=== PATIENT | female | born 1980 | race African-American/Black ===

== ENCOUNTER 2016-10-04 23:48 | Emergency (ER) | payer MEDICAID, OTHER ==
[2016-10-05] MEDS ORDERED: DIPH/PERTUSS(ACELL)/TETANUS VAC/PF 0.5 ML SYR (>=10YO) IM ONE (02:18)
[2016-10-05] MEDS ORDERED: VALSARTAN 40 MG TABLET PO ONE (02:19)
--- NOTE | 2016-10-05 02:19 | ER Document Report ---
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 Patient states that she is not up-to-date on her tetanus, she does not remember when the last time she had it was. She states bleeding is controlled. She also admits to stopping her lisinopril last week because she saw images and YouTube videos of angioedema and "it scares me." She is complaining of a headache that has been off and on for the past week since she stopped the lisinopril and has made an appointment with her primary care provider for early next week. She denies any blurred vision, chest pain, shortness of breath. TRAVEL OUTSIDE OF THE [place] IN LAST 30 DAYS: No - Related Data Allergies/Adverse Reactions: No Known Allergies Allergy (Verified 07/03/16 18:44) Past Medical History - General Information source: Patient - Social History Smoking Status: Current Some Day Smoker Chew tobacco use (# tins/day): No Frequency of alcohol use: Occasional Drug Abuse: None Family History: Reviewed & Not Pertinent Patient has suicidal ideation: No Patient has homicidal ideation: No - Past Medical History Cardiac Medical History: Reports: Hx Hypertension Renal/ Medical History: Denies: Hx Peritoneal Dialysis Past Surgical History: Reports: Hx Section - Immunizations Hx Diphtheria, Pertussis, Tetanus Vaccination: - unknown Review of Systems - Review of Systems Constitutional: No symptoms reported EENT: No symptoms reported Cardiovascular: See HPI Respiratory: No symptoms reported Gastrointestinal: No symptoms reported Genitourinary: No symptoms reported Female Genitourinary: No symptoms reported Musculoskeletal: No symptoms reported Skin: See HPI Hematologic/Lymphatic: No symptoms reported Neurological/Psychological: See HPI Physical Exam - Vital signs Vitals: Temp Pulse Resp BP Pulse Ox 98.2 F 78 18 175/116 H 100 10/05/16 00:07 10/05/16 00:07 10/05/16 00:07 10/05/16 00:07 10/05/16 00:07 - Notes Notes: PHYSICAL EXAMINATION: GENERAL: Well-appearing and in no acute distress. HEAD: Atraumatic, normocephalic. EYES: Pupils equal round and reactive to light, extraocular movements intact, sclera anicteric, conjunctiva are normal. NECK: Normal range of motion, supple without lymphadenopathy LUNGS: CTAB and equal. No wheezes rales or rhonchi. HEART: Regular rate and rhythm without murmurs EXTREMITIES: Normal range of motion, no pitting edema. No cyanosis. NEUROLOGICAL: Cranial nerves grossly intact. Normal sensory/motor exams. PSYCH: Normal mood, normal affect. SKIN: Warm, Dry, normal turgor, 1cm laceration to volar surface of left 2nd digit distally, no bleeding, superficial Course - Re-evaluation Re-evalutation: 10/05/16 02:36 Pt given dose of blood pressure medication here as she was complaining of headache with a blood pressure 175/116. Patient did soak finger in Hibiclens with saline and laceration was prepared with Dermabond successfully. Patient has an appointment next week, I will provide her with a prescription for blood pressure medication - Vital Signs Vital signs: Temp Pulse Resp BP Pulse Ox 98.7 F 73 16 167/104 H 100 10/05/16 04:08 10/05/16 04:08 10/05/16 04:08 10/05/16 04:08 10/05/16 04:08 Procedures - Laceration/Wound Repair Left Volar 2nd digit Time completed: 01:00 Wound length (cm): 1 Wound's Depth, Shape: Superficial, Linear Laceration pre-procedure: Shur-Clens applied Irrigated w/ Saline (mLs): 50 Wound Repaired With: Dermabond Post-procedure NV exam normal: Yes Complications: No Discharge - Discharge Clinical Impression: Laceration, Need for tetanus booster HTN (hypertension) Qualifiers: Hypertension type: essential hypertension Qualified Code(s): I10 - Essential ( primary) hypertension Condition: Stable Disposition: HOME, SELF-CARE Instructions: Tetanus Immunization Given ([facility]), Non-Sutured Laceration ([facility]) Additional Instructions: Return immediately for any new or worsening symptoms. Follow up with primary care provider, call tomorrow to make followup appointment. Prescriptions: Cephalexin Monohydrate [Keflex 500 mg Capsule] 500 mg PO BID 5 Days Valsartan 40 mg PO DAILY #7 tablet Forms: Return to Work Referrals: DEANA YUSUF MD [Primary Care Provider] - Follow up as needed
[2016-10-05] MEDS ORDERED: VALSARTAN 40 MG TABLET ONE (03:20)
[2016-10-05 04:11] VITALS: BP 167/104
== END 2016-10-05 04:08 | disposition home or self-care (01) ==
LOC: ER 23:48
DX: S61.211A Laceration without foreign body of left index finger without damage to nail, initial encounter (principal); W26.0XXA Contact with knife, initial encounter; Y93.89 Activity, other specified; I10 Essential (primary) hypertension; Z91.14 Patient's other noncompliance with medication regimen; R51 Headache; Z23 Encounter for immunization; F17.200 Nicotine dependence, unspecified, uncomplicated
CPT/HCPCS: 90471; 90715; 99282

== ENCOUNTER → 2017-01-31 | Outpatient (CLI) | payer MEDICAID ==
[2017-02-01 06:46] LABS: CHLAM PCR NOT DETECTED (NOT DETECT)
== END ==
LOC: LAB 11:51
PROVIDERS: ATTEND Nurse Practitioner Acute Care
DX: N89.8 Other specified noninflammatory disorders of vagina (principal)
CPT/HCPCS: 87210; 87491; 87591

== ENCOUNTER → 2017-05-02 | Outpatient (CLI) | payer MEDICAID ==
[2017-05-02 13:02] LABS: CHLAM PCR NOT DETECTED (NOT DETECT)
== END ==
LOC: LAB 13:26
PROVIDERS: ATTEND Nurse Practitioner Acute Care
DX: N89.8 Other specified noninflammatory disorders of vagina (principal)
CPT/HCPCS: 87210; 87491; 87591

== ENCOUNTER 2017-05-12 02:52 | Emergency (ER) | payer MEDICAID ==
--- NOTE | 2017-05-12 03:21 | ER Document Report ---
ED General - General Chief Complaint: Difficulty Swallowing Stated Complaint: SHORTNESS OF BREATH Time Seen by Provider: 05/12/17 03:07 TRAVEL OUTSIDE OF THE [place] IN LAST 30 DAYS: No - HPI Notes: 37-year-old female with history of hypertension presents with chest discomfort and some sensation of a pill being stuck in the esophagus. She has been on Flagyl twice daily now for approximately a week and has 2 doses left. Each time she swallows that she feels like it is getting hung up. Feels like it is notably like this in her upper left chest which causes chest pressure and discomfort. With this some mild associated shortness of breath. There is no sharp pain. No hoarseness, speech difficulty. Denies cough or fever. She does have a history of hypertension and is supposed to be on lisinopril but is not taking it because it does not help her hypertension. She denies radiation of symptoms otherwise. Symptoms are mild to moderate. Denies headache focal weakness numbness or tingling. - Related Data Allergies/Adverse Reactions: No Known Allergies Allergy (Verified 07/03/16 18:44) Past Medical History - Social History Smoking Status: Current Some Day Smoker Frequency of alcohol use: Rare Drug Abuse: None Family History: Reviewed & Not Pertinent, CAD Patient has suicidal ideation: No Patient has homicidal ideation: No - Past Medical History Cardiac Medical History: Reports: Hx Hypertension Endocrine Medical History: Denies: Hx Diabetes Mellitus Type 1 Renal/ Medical History: Denies: Hx Peritoneal Dialysis Past Surgical History: Reports: Hx Section - Immunizations Hx Diphtheria, Pertussis, Tetanus Vaccination: - unknown Review of Systems - Review of Systems -: Yes All other systems reviewed and negative Physical Exam - Vital signs Vitals: Temp Pulse Resp BP Pulse Ox 98.1 F 89 18 164/113 H 100 05/12/17 02:58 05/12/17 02:58 05/12/17 02:58 05/12/17 02:58 05/12/17 02:58 Interpretation: Hypertensive - Notes Notes: Physical Exam: GENERAL: VS as per nursing doc. patient notably very hypertensive. Well- appearing, well-nourished and in no acute distress. HEAD: Atraumatic, normocephalic. EYES: Pupils equal round and reactive to light, extraocular movements intact, sclera anicteric, no conjunctival injection or discharge. ENT: Nares patent, oropharynx clear without exudates. Moist mucous membranes. No foreign body is noted. Trachea is midline, there is no neck swelling. NECK: Normal range of motion, supple without lymphadenopathy. No JVD. No Carotid Bruits. LUNGS: Breath sounds clear to auscultation bilaterally and equal. No wheezes rales or rhonchi. HEART: Normal S1S2. Regular rate and rhythm without murmurs. Equal peripheral pulses. ABDOMEN: Soft, non-tender EXTREMITIES: Normal range of motion. No calf tenderness. Negative Homans. No edema. NEUROLOGICAL: Cranial nerves grossly intact. Normal speech without hoarseness or stridor. Normal sensory and motor exams. No gross cerebellar abnormalities. PSYCH: Normal mood, normal affect. SKIN: Warm, dry, no cyanosis, no splinter hemorrhages. Cap refill < 2 sec. Course - Re-evaluation Re-evalutation: 05/12/17 05:27 I discussed with the patient findings. She has some mild hypokalemia she will supplement with improved diet. Her sensation seems to have resolved though she has the problem with the dysphasia with pills. I recommended GI follow-up her symptoms as she has had recurrence of this not just with pills but as well with some food in the past. With the chest pressure and her elevated blood pressure , I will consider this symptomatic and place her on Norvasc as the lisinopril had not worked in the past. She has used Norvasc when she has been in the hospital before and it seems to have helped. She understands she will need to establish a primary care physician for further blood pressure management, follow -up as well. She understands warning signs to watch for. She denies - Vital Signs Vital signs: Temp Pulse Resp BP Pulse Ox 98.1 F 89 27 H 155/105 H 100 05/12/17 02:58 05/12/17 02:58 05/12/17 05:08 05/12/17 05:08 05/12/17 05:08 - Laboratory Result Diagrams: 05/12/17 03:52 05/12/17 03:52 Laboratory results interpreted by me: 05/12/17 05/12/17 03:52 03:52 Hgb 11.2 L Hct 34.2 L MCH 26.8 L RDW 15.5 H Seg Neutrophils % 41.1 L Monocytes % 14.9 H Potassium 3.2 L - EKG Interpretation by Me EKG shows normal: Sinus rhythm - Rate 83, normal sinus rhythm, no clear ischemia. Borderline LVH. Nonspecific ST-T wave abnormalities. No prior EKG for comparison. Discharge - Discharge Clinical Impression: Dysphagia, Uncontrolled hypertension, Hypokalemia, Chest pain Condition: Good Disposition: HOME, SELF-CARE Additional Instructions: Return for worsening or concern. Make sure you call to arrange follow-up as well as establish a primary care physician. Prescriptions: Amlodipine Besylate [Norvasc 5 mg Tablet] 5 mg PO DAILY #30 tablet Forms: Smoking Cessation Education Referrals: [facility] [Provider Group] - Follow up in 1 week ANNETTE VERONICA MD [ACTIVE STAFF] - Follow up in 1 week
[2017-05-12 04:07] LABS: ABSOLUTE BASOPHILS # (AUTO) 0.1 10^3/uL (0.0-0.2); ABSOLUTE EOSINOPHILS # (AUTO) 0.1 10^3/uL (0.0-0.6); ABSOLUTE LYMPHOCYTES (AUTO) 2.1 10^3/uL (0.5-4.7); ABSOLUTE MONOCYTES (AUTO) 0.8 10^3/uL (0.1-1.4); ABSOLUTE NEUT (AUTO) 2.1 10^3/uL (1.7-8.2); BASOPHILS % (AUTO) 1.3 % (0-2); EOSINOPHILS % (AUTO) 1.3 % (0-6); HEMATOCRIT 34.2 % (36.0-47.0); HEMOGLOBIN 11.2 g/dL (12.0-15.5); HGB HCT DIFFERENCE -0.6; LYMPHOCYTES % (AUTO) 41.4 % (13-45); MEAN CORPUSCULAR HEMOGLOBIN 26.8 pg (27.0-33.4); MEAN CORPUSCULAR HGB CONC 32.7 g/dL (32.0-36.0); MEAN CORPUSCULAR VOLUME 82 fl (80-97); MONOCYTES % (AUTO) 14.9 % (3-13); RED BLOOD COUNT 4.18 10^6/uL (3.72-5.28); RED CELL DISTRIBUTION WIDTH 15.5 % (11.5-14.0); SEGMENTED NEUTROPHILS % (AUTO) 41.1 % (42-78); WHITE BLOOD COUNT 5.1 10^3/uL (4.0-10.5)
[2017-05-12 04:24] LABS: ANION GAP 11 (5-19); BLOOD UREA NITROGEN 10 mg/dL (7-20); CALCIUM 9.7 mg/dL (8.4-10.2); CARBON DIOXIDE 29 mmol/L (22-30); CHLORIDE 102 mmol/L (98-107); GLUCOSE 102 mg/dL (75-110); POTASSIUM 3.2 mmol/L (3.6-5.0); SODIUM 142.2 mmol/L (137-145)
[2017-05-12] MEDS ORDERED: AMLODIPINE BESYLATE 5 MG TABLET PO ONE (05:27)
--- NOTE | 2017-05-12 05:27 | RADIOLOGY REPORT (SQ) ---
EXAM DESCRIPTION: CHEST PA/LAT COMPLETED DATE/TIME: 05/12/2017 5:20 am REASON FOR STUDY: CP COMPARISON: None. EXAM PARAMETERS: NUMBER OF VIEWS: two views TECHNIQUE: Digital Frontal and Lateral radiographic views of the chest acquired. RADIATION DOSE: NA LIMITATIONS: none FINDINGS: LUNGS AND PLEURA: No opacities, masses or pneumothorax. No pleural effusion. MEDIASTINUM AND HILAR STRUCTURES: No masses or contour abnormalities. HEART AND VASCULAR STRUCTURES: Heart normal size. No evidence for failure. BONES: No acute findings. HARDWARE: None in the chest. OTHER: No other significant finding. IMPRESSION: NO SIGNIFICANT RADIOGRAPHIC FINDING IN THE CHEST. TECHNICAL DOCUMENTATION: JOB ID: [id number] [employer]- All Rights Reserved
[2017-05-12 05:56] VITALS: BP 152/107
--- NOTE | 2017-05-12 21:04 | EKG REPORT ---
SEVERITY:- NORMAL ECG - SINUS RHYTHM : Confirmed by: Issa Alvarado 12-May-2017 21:03:58
== END 2017-05-12 05:54 | disposition home or self-care (01) ==
LOC: ER 02:52
DX: R13.10 Dysphagia, unspecified (principal); I10 Essential (primary) hypertension; E87.6 Hypokalemia; R07.9 Chest pain, unspecified; R06.02 Shortness of breath; Z79.899 Other long term (current) drug therapy; F17.200 Nicotine dependence, unspecified, uncomplicated
CPT/HCPCS: 93005; 99285; 36415; 85025; 80048; 84484; 71020; 93010; J3490

== ENCOUNTER 2017-12-31 08:02 | Day surgery (SDC) | payer MEDICAID ==
[2017-12-31 10:25] VITALS: BP 144/103
--- NOTE | 2017-12-31 13:28 | Operative Report ---
Operative Report DATE OF SURGERY: 12/31/17 Operative Report: The risks, benefits and alternatives of the procedure including risks of bleeding, perforation requiring surgery are explained to the patient in detail and informed consent is obtained. The patient is brought back to the endoscopy suite and placed in a left, lateral decubital position. Timeout was called. Propofol medications administered. A rectal examination is done which did not reveal any masses, tears or fissures. An Olympus videoscope was inserted into the patient's rectum. The scope was then carefully advanced all the way to the cecum. The cecum is identified by the usual anatomical landmarks including the ileocecal valve as well as the appendiceal office. Photodocumentation is obtained. The scope was then sequentially pulled back via the various segments of the colon including the ascending colon, hepatic flexure, transverse colon, splenic flexure, descending colon and finally into the rectosigmoid portions of the colon. Retroflexion maneuvers performed. The risks benefits and alternatives of the procedure explained to the patient in detail and informed consent is obtained.A GIF Olympus video scope was inserted into the patient's mouth and hypopharynx, the esophagus is identified intubated and insufflated,,the scope was then advanced through the esophagus stomach and duodenum, retroflexion maneuver is done, the esophagus stomach and first and second portions of the duodenum examined PREOPERATIVE DIAGNOSIS: History of colon polyps. Epigastric pain rule out peptic ulcer disease POSTOPERATIVE DIAGNOSIS: Colon polyp, sessile in the sigmoid colon Status post biopsy. Gastritis status post biopsy rule out Helicobacter pylori OPERATION: Colonoscopy with biopsy. EGD with biopsy SURGEON: ANNETTE VERONICA ANESTHESIA: LMAC TISSUE REMOVED OR ALTERED: As noted above. COMPLICATIONS: None. ESTIMATED BLOOD LOSS: None. INTRAOPERATIVE FINDINGS: As noted above. PROCEDURE: Patient tolerated procedure well. Medial postprocedure complications are noted. Patient discharged in good condition. Discharge date 12/31/2017. Discharge diet: Regular. Discharge activity: Regular. 2-3 week follow-up to discuss findings. Patient is instructed to call the office or proceed to the emergency room should there be any further problems or questions. We will went pathology.
== END 2017-12-31 10:25 | disposition home or self-care (01) ==
LOC: END 08:02
PROVIDERS: ATTEND Internal Medicine Gastroenterology
PROC: 0DB68ZX Excision of Stomach, Via Natural or Artificial Opening Endoscopic, Diagnostic (ICD-10-PCS; 2017-12-31)
PROC: 0DBF8ZX Excision of Right Large Intestine, Via Natural or Artificial Opening Endoscopic, Diagnostic (ICD-10-PCS; principal; 2017-12-31 10:30)
PROC: 0DBN8ZX Excision of Sigmoid Colon, Via Natural or Artificial Opening Endoscopic, Diagnostic (ICD-10-PCS; 2017-12-31 10:30)
DX: D12.5 Benign neoplasm of sigmoid colon (principal); K29.50 Unspecified chronic gastritis without bleeding; K52.9 Noninfective gastroenteritis and colitis, unspecified; I10 Essential (primary) hypertension; F17.210 Nicotine dependence, cigarettes, uncomplicated; Z79.899 Other long term (current) drug therapy; Z86.010 Personal history of colon polyps
CPT/HCPCS: 43239; 45380; 813; 88305; 88342

== ENCOUNTER 2018-03-13 13:18 | Emergency (ER) | payer MEDICAID ==
[2018-03-13 13:55] VITALS: BP 170/105
--- NOTE | 2018-03-13 14:51 | ER Document Report ---
HPI - HPI Patient complains to provider of: Concerned about bedbugs Onset: Last week Onset/Duration: Persistent Pain Level: Denies Context: Patient complains of skin pruritus for the past week. Patient states that she works with a fellow employee who states that they had bed bugs and she is concerned that now she has them. Patient states that she is concerned that they may be underneath her skin. Associated Symptoms: Other - Skin rash with pruritus Exacerbated by: Denies Relieved by: Denies Similar symptoms previously: No Recently seen / treated by doctor: No - ROS ROS below otherwise negative: Yes Systems Reviewed and Negative: Yes All other systems reviewed and negative - CONSTITUTIONAL Constitutional: DENIES: Fever - EENT EENT: DENIES: Sore Throat - NEURO Neurology: DENIES: Headache - RESPIRATORY Respiratory: DENIES: Coughing - GASTROINTESTINAL Gastrointestinal: DENIES: Nausea, Patient vomiting - DERM Skin Color: Normal Skin Problems: Rash Past Medical History - General Information source: Patient - Social History Smoking Status: Current Every Day Smoker Smoking Education Provided: Yes Frequency of alcohol use: None Drug Abuse: None 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 Family History: Reviewed & Not Pertinent, CAD - Past Medical History Cardiac Medical History: Reports: Hx Hypertension Denies: Hx Coronary Artery Disease, Hx Heart Attack Pulmonary Medical History: Denies: Hx Asthma, Hx Bronchitis, Hx COPD, Hx Pneumonia Neurological Medical History: Denies: Hx Cerebrovascular Accident, Hx Seizures Endocrine Medical History: Denies: Hx Diabetes Mellitus Type 1 Renal/ Medical History: Denies: Hx Peritoneal Dialysis Musculoskeltal Medical History: Denies Hx Arthritis Psychiatric Medical History: Reports: Hx Anxiety Surgical Hx: Negative Past Surgical History: Reports: Hx Section - Immunizations Hx Diphtheria, Pertussis, Tetanus Vaccination: Yes Vertical Provider Document - CONSTITUTIONAL Agree With Documented VS: Yes Exam Limitations: No Limitations General Appearance: WD/WN, No Apparent Distress - INFECTION CONTROL TRAVEL OUTSIDE OF THE [place] IN LAST 30 DAYS: No - HEENT HEENT: Atraumatic, Normal ENT Exam, Normocephalic - NECK Neck: Normal Inspection, Supple. negative: Lymphadenopathy-Left, Lymphadenopathy-Right - RESPIRATORY Respiratory: Breath Sounds Normal, No Respiratory Distress - CARDIOVASCULAR Cardiovascular: Regular Rate, Regular Rhythm - BACK Back: Normal Inspection - MUSCULOSKELETAL/EXTREMETIES Musculoskeletal/Extremeties: JN CASTRO - NEURO Level of Consciousness: Awake, Alert, Appropriate Motor/Sensory: No Motor Deficit - DERM Integumentary: Warm, Dry, Rash - Very few scattered papular mildly erythematous lesions to extremities Course - Re-evaluation Re-evalutation: 03/13/18 14:49 Patient very concerned about possibility of bedbugs given that a fellow employee reports having bedbugs. Patient is concerned she has bugs underneath her skin. Explained to patient that bedbugs do not live underneath the surface of the skin. - Vital Signs Vital signs: Temp Pulse Resp BP Pulse Ox 99.0 F 71 18 170/105 H 99 03/13/18 13:54 03/13/18 13:54 03/13/18 13:54 03/13/18 13:54 03/13/18 13:54 Discharge - Discharge Clinical Impression: Insect bite Qualifiers: Encounter type: initial encounter Qualified Code(s): W57.XXXA - Bitten or stung by nonvenomous insect and other nonvenomous arthropods, initial encounter Condition: Stable Disposition: HOME, SELF-CARE Instructions: Insect Bites ([facility]), Topical Steroid Cream or Ointment ([facility]) Additional Instructions: Return immediately for any new or worsening symptoms Followup with your primary care provider, call tomorrow to make a followup appointment Prescriptions: Hydroxyzine HCl [Atarax 25 mg Tablet] 1 - 2 tab PO QID #20 tablet Triamcinolone Acetonide [Aristocort 0.1% Cream] 1 applic TP TID #60 gm Forms: Smoking Cessation Education Referrals: YESSI HERNÁNDEZ PA-C [NO LOCAL MD] - Follow up tomorrow
== END 2018-03-13 14:58 | disposition home or self-care (01) ==
LOC: ER 13:18
DX: R21 Rash and other nonspecific skin eruption (principal); L29.9 Pruritus, unspecified; W57.XXXA Bitten or stung by nonvenomous insect and other nonvenomous arthropods, initial encounter; F17.200 Nicotine dependence, unspecified, uncomplicated; I10 Essential (primary) hypertension
CPT/HCPCS: 99281

== ENCOUNTER 2018-05-05 18:21 | Emergency (ER) | payer MEDICAID ==
[2018-05-05] MEDS ORDERED: PROCHLORPERAZINE EDISYLATE INJ 10 MG/2 ML VIAL IV ONE (18:57)
--- NOTE | 2018-05-05 18:58 | ER Document Report ---
ED General - General Chief Complaint: Headache Stated Complaint: HEADACHE Time Seen by Provider: 05/05/18 18:57 Notes: Patient is a 38 year old female without chronic medical problems who presents with 3 days of sinus pressure, frontal sinus pressure, and 24 hours of a global headache. She describes the headache as an aching, throbbing, constant global headache. Worsened by lights, sounds, movement. Nothing improves the pain. She states this feels very similar to headaches that she has had in the past but she is uncertain of what has triggered this headache. She denies any head trauma. She denies any focal weakness, numbness, fever, constitutional symptoms, or confusion. She has not seen her general doctor regarding today's concerns. TRAVEL OUTSIDE OF THE [place] IN LAST 30 DAYS: No - Related Data Allergies/Adverse Reactions: No Known Allergies Allergy (Verified 03/13/18 13:19) Past Medical History - General Information source: Patient - Social History Smoking Status: Never Smoker Frequency of alcohol use: None Drug Abuse: None Lives with: Spouse/Significant other Family History: Reviewed & Not Pertinent, CAD - Past Medical History Cardiac Medical History: Reports: Hx Hypertension Denies: Hx Coronary Artery Disease, Hx Heart Attack Pulmonary Medical History: Denies: Hx Asthma, Hx Bronchitis, Hx COPD, Hx Pneumonia Neurological Medical History: Denies: Hx Cerebrovascular Accident, Hx Seizures Endocrine Medical History: Denies: Hx Diabetes Mellitus Type 1 Renal/ Medical History: Denies: Hx Peritoneal Dialysis Musculoskeletal Medical History: Denies Hx Arthritis Psychiatric Medical History: Reports: Hx Anxiety Past Surgical History: Reports: Hx Section - Immunizations Hx Diphtheria, Pertussis, Tetanus Vaccination: Yes Review of Systems - Review of Systems Notes: Constitutional: Negative for fever. HENT: Positive for sinus congestion and pressure Eyes: Negative for visual changes. Cardiovascular: Negative for chest pain. Respiratory: Negative for shortness of breath. Gastrointestinal: Negative for abdominal pain, vomiting or diarrhea. Genitourinary: Negative for dysuria. Musculoskeletal: Negative for back pain. Skin: Negative for rash. Neurological: Positive for headache 10 point ROS negative except as marked above and in HPI. Physical Exam - Vital signs Vitals: Temp Pulse Resp BP Pulse Ox 99.2 F 81 16 178/112 H 99 05/05/18 18:24 05/05/18 18:24 05/05/18 18:24 05/05/18 18:24 05/05/18 18:24 Interpretation: Hypertensive - Patient self discontinued medications approximately 2 months ago Notes: PHYSICAL EXAMINATION: GENERAL: Well-appearing, well-nourished and in no acute distress. HEAD: Atraumatic, normocephalic. EYES: Pupils equal round and reactive to light, extraocular movements intact, sclera anicteric, conjunctiva are normal. ENT: Nasal congestion, oropharynx clear without exudates. Moist mucous membranes. NECK: Normal range of motion, supple without lymphadenopathy LUNGS: Breath sounds clear to auscultation bilaterally and equal. No wheezes rales or rhonchi. HEART: Regular rate and rhythm without murmurs ABDOMEN: Soft, nontender, normoactive bowel sounds. No guarding, no rebound. No masses appreciated. EXTREMITIES: Normal range of motion, no pitting or edema. No cyanosis. NEUROLOGICAL: Face symmetric. Tongue protrudes midline. Extraocular motions intact. Pupils are 2 mm and equally reactive. Normal speech, normal gait. 5 out of 5 strength in both the distal and proximal upper and lower extremities bilaterally. Sensation is grossly intact throughout. Finger to nose testing normal. Pronator drift normal. PSYCH: Normal mood, normal affect. SKIN: Warm, Dry, normal turgor, no rashes or lesions noted. Course - Re-evaluation Re-evalutation: 05/05/18 18:58 Presentation of a headache that appears to be most consistent with tension versus migrainous type headache. Headache was not maximal in onset, patient has no focal neurologic deficits, no nuchal rigidity, vital signs within normal limits, no papilledema, and patient is overall well in appearance. Based on clinical history and examination I do not suspect an acute subarachnoid hemorrhage, dural venous sinus thrombosis, acute meningitis, or intercranial mass. Given my low clinical suspicion for any acute life-threatening etiology, I do not feel advanced neuro imaging or laboratory testing is indicated at this time. After receiving a migraine cocktail patient had significant improvement of her headache. The patient does also report symptoms consistent with allergic rhinitis and has been started on fluticasone as well as cetirizine. At this time will discharge with return precautions and follow-up recommendations. Verbal discharge instructions given a the bedside and opportunity for questions given. Medication warnings reviewed. Patient is in agreement with this plan and has verbalized understanding of return precautions and the need for primary care follow-up in the next 24-72 hours. - Vital Signs Vital signs: Temp Pulse Resp BP Pulse Ox 98.7 F 92 17 172/114 H 100 05/05/18 20:51 05/05/18 22:09 05/05/18 22:09 05/05/18 22:09 05/05/18 20:51 Discharge - Discharge Clinical Impression: Essential hypertension Migraine headache Qualifiers: Migraine type: unspecified Status migrainosus presence: with status migrainosus Intractability: not intractable Qualified Code(s): G43.901 - Migraine, unspecified, not intractable, with status migrainosus Allergic rhinitis Qualifiers: Allergic rhinitis trigger: unspecified Allergic rhinitis seasonality: unspecified Qualified Code(s): J30.9 - Allergic rhinitis, unspecified Condition: Good Disposition: HOME, SELF-CARE Additional Instructions: You were seen today for a migraine headache. Please follow-up with your primary care doctor regarding today's ED visit. Return to emergency department immediately if you develop a headache that gets to its maximum severity within 20 minutes of onset, you pass out, you develop weakness, numbness, changes in your vision, become unable to keep any fluids down for more than 12 hours, or develop a fever greater than 100.4 degrees Fahrenheit. If you develop a similar migraine headache in the future I recommend that you immediately take 600 mg of ibuprofen and 50 mg of Benadryl and go to sleep as quickly as possible. This can often prevent your migraine headache from becoming severe. For what appears to be allergies you should begin taking the fluticasone but has been given to you here today 2 sprays in each nostril daily as well as cetirizine 10 mg daily which can be purchased directly over the counter. Please be sure to continue taking her blood pressure medications as her blood pressure was noted to be elevated today.
[2018-05-05] MEDS ORDERED: DEXAMETHASONE SOD PHOS INJ 10 MG/1 ML VIAL IV ONE (19:07)
[2018-05-05] MEDS ORDERED: CETIRIZINE 10 MG TABLET PO ONE (19:07)
[2018-05-05] MEDS ORDERED: FLUTICASONE NASAL SPRAY 50 MCG/SPRY 120 SPRAY/16 GM NASL ONE (19:07)
[2018-05-05] MEDS ORDERED: FLUTICASONE NASAL SPRAY 50 MCG/SPRY 120 SPRAY/16 GM ONE (20:47)
[2018-05-05] MEDS ORDERED: KETOROLAC TROMETHAMINE INJ/PF 30 MG/1 ML SDV IV ONE (20:48)
[2018-05-05] MEDS ORDERED: HALOPERIDOL LACTATE INJ 5 MG/1 ML VIAL IV ONE (20:48)
[2018-05-05 22:10] VITALS: BP 172/114
== END 2018-05-05 22:31 | disposition home or self-care (01) ==
LOC: ER 18:21
DX: I10 Essential (primary) hypertension (principal); G43.901 Migraine, unspecified, not intractable, with status migrainosus; J30.9 Allergic rhinitis, unspecified
CPT/HCPCS: 99284; 96374; 96375; J3490 ×2; J1630; J1885; J0780; J1100

== ENCOUNTER 2018-06-12 00:33 | Emergency (ER) | payer MEDICAID ==
--- NOTE | 2018-06-12 03:41 | ER Document Report ---
HPI - HPI Pain Level: 3 Notes: Patient is a 38-year-old female with a history of hypertension who presents to the ED complaining of bilateral lower extremity swelling to her ankles and her feet over the last 3-4 days patient states that she has not been on her fluid pill in 4-5 days. Patient states that she was placed on it for hypertension. Patient states that last time she had any swelling in her lower externally was when she was . She otherwise has no pain or discomfort associated. She is eating and drinking without any difficulties. She is urinating normally and having normal bowel movements. She does not have any dyspnea on exertion. Denies any drug allergies. She has not noticed any redness or warmth. Denies any headache, fever, URI, sore throat, chest pain, palpitations, syncope, cough , shortness of breath, wheeze, dyspnea, abdominal pain, nausea/vomiting/diarrhea , urinary retention, dysuria, hematuria, loss of control of bowel or bladder, numbness/tingling, saddle anesthesia, muscle paralysis/weakness, or rash. Denies any prolonged immobilization, distance travel, recent surgery/trauma, personal cancer history, hormone use, smoking, or previous DVT/PE. - ROS Systems Reviewed and Negative: Yes All other systems reviewed and negative Past Medical History - Social History Smoking Status: Never Smoker Family History: Reviewed & Not Pertinent, CAD - Past Medical History Cardiac Medical History: Reports: Hx Hypertension Denies: Hx Coronary Artery Disease, Hx Heart Attack Pulmonary Medical History: Denies: Hx Asthma, Hx Bronchitis, Hx COPD, Hx Pneumonia Neurological Medical History: Denies: Hx Cerebrovascular Accident, Hx Seizures Endocrine Medical History: Denies: Hx Diabetes Mellitus Type 1 Renal/ Medical History: Denies: Hx Peritoneal Dialysis Musculoskeletal Medical History: Denies Hx Arthritis Psychiatric Medical History: Reports: Hx Anxiety Past Surgical History: Reports: Hx Section - Immunizations Hx Diphtheria, Pertussis, Tetanus Vaccination: Yes Vertical Provider Document - CONSTITUTIONAL Agree With Documented VS: Yes Notes: PHYSICAL EXAMINATION: GENERAL: Well-appearing, well-nourished and in no acute distress. HEAD: Atraumatic, normocephalic. EYES: Pupils equal round and reactive to light, extraocular movements intact, sclera anicteric, conjunctiva are normal. ENT: Nares patent and without discharge. oropharynx clear without exudates. No tonsilar hypertrophy or erythema. Moist mucous membranes. NECK: Normal range of motion, supple without lymphadenopathy LUNGS: Breath sounds clear to auscultation bilaterally and equal. No wheezes rales or rhonchi. HEART: Regular rate and rhythm without murmurs, rubs, gallops. ABDOMEN: Soft, nontender, nondistended abdomen. No guarding, no rebound. No masses appreciated. Normal bowel sounds present. No CVA tenderness bilaterally. Musculoskeletal: FROM to passive/active. Strength 5+/5. Shandra neg. No asymmetry to LE's. Extremities: Trace pitting edema to the b/l LE's at the ankle/feet. Peripheral pulses 2+. Capillary refill less than 3 seconds. NEUROLOGICAL: Normal speech, normal gait. PSYCH: Normal mood, normal affect. SKIN: Warm, Dry, normal turgor, no rashes or lesions noted. - INFECTION CONTROL TRAVEL OUTSIDE OF THE [place] IN LAST 30 DAYS: No Course - Re-evaluation Re-evalutation: 06/12/18 03:[address] Fairchild who is in agreement with dispo/plan: Patient is an afebrile, well-hydrated, 38-year-old female who presents to the ED with bilateral lower extremity pitting edema to her ankles and feet bilaterally. There is no asymmetry and Homans sign is negative. There is no sign of infection. Vitals are otherwise acceptable without any significant tachycardia, tachypnea, or hypoxia. PE is otherwise unremarkable for any neurovascular compromise, obvious tendon/ligament rupture, obvious fracture/ dislocation, septic joint. No further labs or imaging warranted at this time based on H&P. Patient declined wanting to be placed on any fluid pills at this time and states that she will check in with her PCM tomorrow to get another refill. Conservative measures otherwise for symptoms with elevation and compression stockings. Return to the ED with any other worsening/concerning symptoms otherwise as reviewed in discharge. Patient is in agreement. - Vital Signs Vital signs: Temp Pulse Resp BP Pulse Ox 98.6 F 74 18 139/91 H 100 06/12/18 00:45 06/12/18 00:45 06/12/18 00:45 06/12/18 00:45 06/12/18 00:45 Discharge - Discharge Clinical Impression: Bilateral lower extremity edema Condition: Stable Disposition: HOME, SELF-CARE Additional Instructions: Compression, Elevation Tylenol/ibuprofen as needed Light stretches daily Strength exercises as able F/u with your PCP in 1-2 days for a recheck and med refill Consider consult(s) with Orthopedics/physical therapy for ongoing/worsening symptoms Return to the ED with any worsening symptoms and/or development of fever, headache, chest pain, palpitations, syncope, shortness of breath, trouble breathing, abdominal pain, n/v/d, muscle weakness/paralysis, numbness/tingling, swelling, redness, or other worsening symptoms that are concerning to you. Forms: Elevated Blood Pressure [facility] [[facility] - 06/12/18
[2018-06-12 04:01] VITALS: BP 148/101
== END 2018-06-12 04:01 | disposition home or self-care (01) ==
LOC: ER 00:33
DX: R60.9 Edema, unspecified (principal); I10 Essential (primary) hypertension
CPT/HCPCS: 99283

== ENCOUNTER 2020-01-03 20:02 | Emergency (ER) | payer MEDICAID ==
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
[2020-01-03 21:06] LABS: ABSOLUTE BASOPHILS # (AUTO) 0.1 10^3/uL (0.0-0.2); ABSOLUTE LYMPHOCYTES (AUTO) 3.1 10^3/uL (0.5-4.7); ABSOLUTE MONOCYTES (AUTO) 0.7 10^3/uL (0.1-1.4); ABSOLUTE NEUT (AUTO) 3.3 10^3/uL (1.7-8.2); EOSINOPHILS % (AUTO) 0.3 % (0-6); HEMATOCRIT 29.1 % (36.0-47.0); HEMOGLOBIN 9.1 g/dL (12.0-15.5); MEAN CORPUSCULAR HEMOGLOBIN 21.4 pg (27.0-33.4); MEAN CORPUSCULAR HGB CONC 31.2 g/dL (32.0-36.0); MEAN CORPUSCULAR VOLUME 69 fl (80-97); MONOCYTES % (AUTO) 9.9 % (3-13); PLATELET COUNT 405 10^3/uL (150-450); RED BLOOD COUNT 4.25 10^6/uL (3.72-5.28); RED CELL DISTRIBUTION WIDTH 18.7 % (11.5-14.0); SEGMENTED NEUTROPHILS % (AUTO) 45.8 % (42-78); TOTAL CELLS COUNTED % (AUTO) 100 %; WHITE BLOOD COUNT 7.2 10^3/uL (4.0-10.5)
[2020-01-03 21:24] LABS: ALBUMIN 4.5 g/dL (3.5-5.0); ALKALINE PHOSPHATASE 52 U/L (38-126); ANION GAP 5 (5-19); ASPARTATE AMINO TRANSFERASE 27 U/L (14-36); BILIRUBIN,TOTAL 0.6 mg/dL (0.2-1.3); BLOOD UREA NITROGEN 11 mg/dL (7-20); CARBON DIOXIDE 32 mmol/L (22-30); CHLORIDE 101 mmol/L (98-107); GLUCOSE 100 mg/dL (75-110); POTASSIUM 3.5 mmol/L (3.6-5.0); TOTAL PROTEIN 8.2 g/dL (6.3-8.2)
--- NOTE | 2020-01-03 21:50 | RADIOLOGY REPORT (SQ) ---
EXAM DESCRIPTION: Noncontrast CT of the head CLINICAL HISTORY: 39 years Female HTN [facility] TECHNIQUE: Noncontrast CT head. All CT scans at this facility use dose modulation, iterative reconstruction, and/or weight based dosing when appropriate to reduce radiation dose to as low as reasonably achievable. COMPARISON: None. FINDINGS: Pope matter, white matter, ventricles, and cisterns are within normal limits. No acute hemorrhage or mass effect. Visualized portions of paranasal sinuses and mastoids are clear. Visualized portions of the calvarium are within normal limits. IMPRESSION: 1. No acute intracranial findings. If there is clinical concern for acute stroke, MRI brain should be considered as a more sensitive evaluation.
[2020-01-03] MEDS ORDERED: ONDANSETRON HCL INJ/PF 4 MG/2 ML SDV IV ONE (21:58)
[2020-01-03] MEDS ORDERED: NORMAL SALINE 1000 ML 1,000 ML IV ONE (21:58)
[2020-01-03] MEDS ORDERED: CLONIDINE HCL 0.1 MG TABLET PO ONE (21:59)
--- NOTE | 2020-01-03 22:55 | ER Document Report ---
Entered by TYLER YUSUF SCRIBE 01/03/20 [id number] Acting as scribe for:LAITH AGUAYO IV, MD ED Blood Pressure Problem - General Chief Complaint: Blood Pressure Problem Stated Complaint: HIGH BLOOD PRESSURE Time Seen by Provider: 01/03/20 21:42 Primary Care Provider: KEY PORTER MD [Primary Care Provider] - 01/05/20 Mode of Arrival: Ambulatory Information source: Patient Notes: This 39 year old female patient with a history of hypertension presents to the ED today with complaints of an elevated blood pressure reading that occurred today. Patient states that she has had multiple stressful events yesterday that she believes caused her hypertension. She reports that she stopped taking Telmisartan due to side effects. She states that she checks her blood pressure everyday and that her readings normally trend in the 120s systolic and 90s diastolic. She notes nausea/vomiting and a frontal headache that started yesterday. Patient was seen at her PCP yesterday and was started on iron pills. She states that she took x2 iron pills yesterday on an empty stomach, which may have contributed to her GI symptoms. She also reports anxiety concerning the Covid-19 pandemic. She denies dizziness, chest pain, shortness of breath, or v isual disturbances. Denies marijuana or cocaine use. TRAVEL OUTSIDE OF THE [place] IN LAST 30 DAYS: No - Related Data Allergies/Adverse Reactions: No Known Allergies Allergy (Verified 03/13/18 13:19) Past Medical History - Social History Smoking Status: Never Smoker Cigarette use (# per day): No Chew tobacco use (# tins/day): No Smoking Education Provided: No Drug Abuse: None Family History: Reviewed & Not Pertinent, CAD Patient has suicidal ideation: No Patient has homicidal ideation: No - Past Medical History Cardiac Medical History: Reports: Hx Hypertension Psychiatric Medical History: Reports: Hx Anxiety Past Surgical History: Reports: Hx Section - Immunizations Hx Diphtheria, Pertussis, Tetanus Vaccination: Yes Review of Systems - Review of Systems Constitutional: See HPI, Other - Hypertension EENT: See HPI. denies: Blurred vision Cardiovascular: See HPI. denies: Chest pain, Dizziness Respiratory: See HPI. denies: Short of breath Gastrointestinal: See HPI, Nausea, Vomiting Genitourinary: No symptoms reported Female Genitourinary: No symptoms reported Musculoskeletal: No symptoms reported Skin: No symptoms reported Hematologic/Lymphatic: No symptoms reported Neurological/Psychological: See HPI, Anxiety, Headaches -: Yes All other systems reviewed and negative Physical Exam - Vital signs Vitals: Temp Pulse Resp BP Pulse Ox 99.2 F 76 16 171/110 H 100 01/03/20 20:05 01/03/20 20:05 01/03/20 20:05 01/03/20 20:05 01/03/20 20:05 Interpretation: Hypertensive - General General appearance: Alert, Anxious In distress: None - HEENT Head: Normocephalic, Atraumatic Eyes: Normal Pupils: PERRL - Respiratory Respiratory status: No respiratory distress Chest status: Nontender Breath sounds: Normal Chest palpation: Normal - Cardiovascular Rhythm: Regular Heart sounds: Normal auscultation Murmur: No - Abdominal Inspection: Normal Distension: No distension Bowel sounds: Normal Tenderness: Nontender Organomegaly: No organomegaly - Back Back: Normal, Nontender - Extremities General upper extremity: Normal inspection General lower extremity: Normal inspection - Neurological Neuro grossly intact: Yes - Psychological Associated symptoms: Anxious - Skin Skin Temperature: Warm Skin Moisture: Dry Skin Color: Normal Course - Re-evaluation Re-evalutation: 01/03/20 23:28 Patient states she is feeling better. Patient's blood pressure is down to 157/100. Patient is wondering what to do about her blood pressure for the next couple of days until she gets in with her PCP in 2 days. Patient states that she is unable to tolerate lisinopril due to angioedema and has not been able to tolerate hydrochlorothiazide in the past. This MD informed patient that clonidine is not a great choice in terms of long-term blood pressure control but this MD is willing to write for a couple of days of clonidine to "get her by" until she sees her doctor on 01/05/2020. Results of ED MSE discussed with patient. All questions were answered prior to discharge. Emergency signs and symptoms, reasons to return to the emergency department discussed with patient. - Vital Signs Vital signs: Temp Pulse Resp BP Pulse Ox 99.8 F 71 15 139/102 H 100 01/03/20 23:48 01/03/20 23:48 01/04/20 00:01 01/04/20 00:01 01/04/20 00:01 - Laboratory Result Diagrams: 01/03/20 20:50 01/03/20 20:50 Laboratory results interpreted by me: 01/03/20 01/03/20 20:50 20:50 Hgb 9.1 L Hct 29.1 L MCV 69 L MCH 21.4 L MCHC 31.2 L RDW 18.7 H Potassium 3.5 L Carbon Dioxide 32 H Discharge - Discharge Clinical Impression: Elevated blood pressure reading Condition: Good Disposition: HOME, SELF-CARE Instructions: Clonidine (Catapres) ([facility]), High Blood Pressure, Requiring Treatment ([facility]) Additional Instructions: Return to the Emergency Department without delay if any worse. HOME CARE INSTRUCTIONS & INFORMATION: Thank you for choosing us for your medical needs. We hope you're satisfied with the care you received. After you leave, you must properly care for your problem and, at the same time, observe its progress. Any condition can change. Some illnesses can change rapidly over hours or days. If your condition worsens, return to the Emergency Department or see your physician promptly. ABOUT YOUR X-RAYS AND EKG'S: If you had an EKG or X-rays taken, they have been read by the Emergency Physician. The X-rays and EKG's will also be read by a Radiologist or Frame Aligner within 24 hours. If discrepancies are noted, you w ill be notified by telephone. Please be certain the ED has a correct telephone number & address where you can be reached. Also, realize that some fractures or abnormalities do not show up on initial X-rays. If your symptoms continue, see your physician. ABOUT YOUR LABORATORY TEST: If you had laboratory tests, the results have been reviewed by the Emergency Physician. Some test results (for example cultures) may not be available for several days. You will be contacted if any test result shows you need additional treatment. Please be certain the ED has a correct telephone number and address where you can be reached. ABOUT YOUR MEDICATIONS: You will receive instructions on how to take your medicine on the prescription label you receive. Additional information may be provided by the Pharmacy. If you have questions afterwards, call the ED for clarification or further instructions. Some prescribed medications may cause drowsiness. Do not perform tasks such as driving a car or operating machinery without consulting your Pharmacist. If you feel you need a refill of pain medic ation, your condition will need re-evaluation. Please do not call for a refill of any medication. ABOUT YOUR SIGNATURE: Signature of this document acknowledges to followin. Understanding that you received emergency treatment and that you may be released before al medical problems are known or treated. Please be certain the ED has a correct phone number & address where you can be reached. 2. Acknowledgement that you will arrange for follow-up care as recommended. 3. Authorization for the Emergency Physician to provide information to your follow-up Physician in order to maximize your care. AT ANY TIME, IF YOUR SYMPTOMS CHANGE SIGNIFICANTLY OR WORSEN OR YOU DEVELOP NEW SYMPTOMS, RETURN TO THE EMERGENCY DEPARTMENT IMMEDIATELY FOR RE-EVALUATION. OUR GOAL IS TO PROVIDE EXCELLENT MEDICAL CARE! WE HOPE THAT WE HAVE MET YOUR EXPECTATIONS DURING YOUR EMERGENCY DEPARTMENT VISIT AND THAT YOU FEEL YOU HAVE RECEIVED EXCELLENT CARE! Prescriptions: Clonidine HCl [Catapres 0.1 mg Tablet] 0.1 mg PO BIDP PRN 2 Days #4 tablet PRN Reason: elevated blood pressure Referrals: KEY PORTER MD [Primary Care Provider] - 01/05/20 I personally performed the services described in the documentation, reviewed and edited the documentation which was dictated to the scribe in my presence, and it accurately records my words and actions.
[2020-01-03] MEDS ORDERED: KETOROLAC TROMETHAMINE INJ/PF 30 MG/1 ML SDV IV ONE (23:28)
[2020-01-04 01:15] VITALS: BP 138/100
== END 2020-01-04 01:00 | disposition home or self-care (01) ==
LOC: ER 20:02
DX: I10 Essential (primary) hypertension (principal); R11.2 Nausea with vomiting, unspecified; R51 Headache; F41.9 Anxiety disorder, unspecified
CPT/HCPCS: 99284; 96361; 96374; 96375; 36415; 85025; 80053; 70450; J3490; J1885; J2405; J7030

== ENCOUNTER 2020-05-18 01:41 | Emergency (ER) | payer MEDICAID ==
[2020-05-18 02:31] VITALS: BP 193/110
--- NOTE | 2020-05-18 06:29 | EKG REPORT ---
SEVERITY:- ABNORMAL ECG - SINUS RHYTHM FIRST DEGREE AV BLOCK BORDERLINE PROLONGED QT INTERVAL : Confirmed by: Mauri Cox MD 18-May-2020 06:28:36
== END 2020-05-18 05:30 | disposition left against medical advice (07) ==
LOC: ER 01:41
DX: Z53.21 Procedure and treatment not carried out due to patient leaving prior to being seen by health care provider (principal)
CPT/HCPCS: 93005; 93010

== ENCOUNTER 2020-05-18 16:27 | Emergency (ER) | payer MEDICAID ==
--- NOTE | 2020-05-18 21:51 | ER Document Report ---
ED General - General Chief Complaint: High Blood Pressure Stated Complaint: SHORTNESS OF BREATH/HEADACHE Time Seen by Provider: 05/18/20 21:24 Primary Care Provider: KEY PORTER MD [Primary Care Provider] - Follow up as needed TRAVEL OUTSIDE OF THE [place] IN LAST 30 DAYS: No - HPI Notes: Patient is a 40-year-old female who presents to the emergency department for evaluation. Evidently, the patient was given a [facility] for [facility]ol [facility], she believes it was because her blood pressure was up. She took it for the first time yesterday. She states that within an hour she started having shortness of breath. It progressed, then she developed chest tightness. She came to the emergency department, but claims that she left after waiting too long to be seen. She states she is developed left-sided numbness that started in the middle of the night as well. She denies any difficulty seeing, speaking, swallowing. She is moving her arms and legs without difficulty. The patient states that when her blood pressure is high she takes "an anxiety medication" but cannot identify what medicine this is. She states that normally improves her blood pressure. She denies any swelling in her lips, mouth, tongue. She did not take the medication today, but her symptoms persist. - Related Data Allergies/Adverse Reactions: No Known Allergies Allergy (Verified 03/13/18 13:19) Home Medications: Hydrochlorothiazide 25 mg daily Past Medical History - General Information source: Patient - Social History Smoking Status: Never Smoker Chew tobacco use (# tins/day): No Frequency of alcohol use: Rare Drug Abuse: None Family History: Reviewed & Not Pertinent, CAD, Hypertension Patient has homicidal ideation: No - Past Medical History Cardiac Medical History: Reports: Hx Hypertension Denies: Hx Coronary Artery Disease, Hx Heart Attack Pulmonary Medical History: Denies: Hx Asthma, Hx Bronchitis, Hx COPD, Hx Pneumonia Neurological Medical History: Denies: Hx Cerebrovascular Accident, Hx Seizures Endocrine Medical History: Denies: Hx Diabetes Mellitus Type 1 Renal/ Medical History: Denies: Hx Peritoneal Dialysis Musculoskeletal Medical History: Denies Hx Arthritis Psychiatric Medical History: Reports: Hx Anxiety Past Surgical History: Reports: Hx Section - Immunizations Hx Diphtheria, Pertussis, Tetanus Vaccination: Yes Review of Systems - Review of Systems Constitutional: No symptoms reported EENT: No symptoms reported Cardiovascular: See HPI Respiratory: See HPI Gastrointestinal: No symptoms reported Genitourinary: No symptoms reported Musculoskeletal: No symptoms reported Skin: No symptoms reported Neurological/Psychological: See HPI Physical Exam - Vital signs Vitals: Temp Pulse Resp BP Pulse Ox 99 F 107 H 20 166/122 H 100 05/18/20 19:14 05/18/20 19:14 05/18/20 19:14 05/18/20 19:14 05/18/20 19:14 - Notes Notes: Vital signs reviewed, please refer to chart. Head is normocephalic, atraumatic. Pupils equal round, reactive to light. Neck is supple without meningismus. Heart is regular rate and rhythm. Lungs are clear to auscultation bilaterally. Abdomen is soft, nontender, normoactive bowel sounds throughout. Extremities without cyanosis, clubbing. Posterior calves are nontender. Peripheral pulses are equal. Skin is warm and dry. Patient is awake, alert, oriented x3. Cranial nerves II - XII are grossly intact without focal neurological deficits. Strength is plus 5 out of 5 bilateral upper and lower extremities. Sensation is intact. Reflexes symmetrical. Intact [id number], rapid alternating movements, [id number]. Course - Re-evaluation Re-evalutation: 05/18/20 21:49 Patient presents to the emergency department for evaluation of chest pain, left- sided numbness, shortness of breath. She states these all started within an hour of taking her labetalol for the first time. I did review prior notes, she has had reactions of some sort to blood pressure medications in the past. Initially the patient was slated to go to the [facility] section secondary to shortness of breath. The became she became more anxious and agitated over this. This agitation and frustration persisted throughout the course of my interview and examination. Her blood pressure remained elevated as well. At this point, patient is placed on a monitoring specialist. She had laboratory investigations, EKG, chest x-ray ordered. She is currently stable, we will continue to monitor. - Vital Signs Vital signs: Temp Pulse Resp BP Pulse Ox 99 F 107 H 20 171/122 H 100 05/18/20 19:14 05/18/20 19:14 05/18/20 19:14 05/18/20 22:00 05/18/20 22:01 - Laboratory Result Diagrams: 05/18/20 21:57 09/01/20 21:57 Laboratory results interpreted by me: 05/18/20 05/18/20 21:57 21:57 Hgb 11.6 L MCV 73 L MCH 23.3 L RDW 19.7 H Est GFR (MDRD) Non-Af 57 L Total Protein 8.6 H Discharge - Discharge Clinical Impression: Dyspnea, Chest pain, Hypertension Condition: Stable Disposition: HOME, SELF-CARE Instructions: High Blood Pressure, Requiring Treatment ([facility]), High Blood Pressure ([facility]), Chest Pain of Unclear Cause ([facility]) Additional Instructions: Your blood pressure was elevated here today. You should have this further addressed by her primary care provider. Your labs and chest x-ray showed no obvious cause for your symptoms. Your CT scan of your head was read by rad iology as being normal. If your symptoms worsen, or you develop new or concerning symptoms of any sort, please return immediately to the ER for further evaluation. Otherwise, follow-up with your primary care provider this week. You should discuss your elevated blood pressure at that time. Referrals: KEY PORTER MD [Primary Care Provider] - Follow up as needed
--- NOTE | 2020-05-18 22:24 | RADIOLOGY REPORT (SQ) ---
EXAM DESCRIPTION: XR CHEST 1 VIEW COMPLETED DATE/TME: 05/18/2020 21:44 CLINICAL HISTORY: 40 years, Female, dyspnea COMPARISON: 05/12/2017 chest NUMBER OF VIEWS: 1 TECHNIQUE: Portable chest LIMITATIONS: None. FINDINGS: The heart size is normal. Lungs are clear. No pneumothorax IMPRESSION: Negative chest copyright 2010 [employer]- All Rights Reserved
[2020-05-18 22:34] LABS: ABSOLUTE BASOPHILS # (AUTO) 0.1 10^3/uL (0.0-0.2); ABSOLUTE MONOCYTES (AUTO) 0.7 10^3/uL (0.1-1.4); BASOPHILS % (AUTO) 1.4 % (0-2); MEAN CORPUSCULAR HEMOGLOBIN 23.3 pg (27.0-33.4); PLATELET COUNT 373 10^3/uL (150-450); TOTAL CELLS COUNTED % (AUTO) 100 %
--- NOTE | 2020-05-18 22:34 | RADIOLOGY REPORT (SQ) ---
CT HEAD WITHOUT IV CONTRAST CLINICAL STATEMENT: left sided paresthesias TECHNIQUE: Axial CT images from skull base to vertex without IV contrast. This exam was performed according to our departmental dose optimization program, and includes the following measures where applicable: automated exposure control, adjustment of the mAs and/or kVp according to patient size and/or exam, and an iterative reconstruction algorithm. COMPARISON: Unenhanced CT scan of the brain 01/03/2020 FINDINGS: There is no acute intracranial hemorrhage, mass, mass effect or abnormal extra-axial fluid collection. No evidence of an acute territorial infarct is identified. The ventricles are normal. Calvaria: The skull base and calvaria demonstrate no abnormality. Paranasal sinuses: Visualized portions of the orbits and paranasal sinuses are unremarkable. skull base: Unremarkable IMPRESSION: No acute process. No significant interval change.
[2020-05-18 22:35] LABS: ALBUMIN 4.8 g/dL (3.5-5.0); ALKALINE PHOSPHATASE 74 U/L (38-126); ANION GAP 11 (5-19); ASPARTATE AMINO TRANSFERASE 29 U/L (14-36); BILIRUBIN,DIRECT 0.2 mg/dL (0.0-0.4); BILIRUBIN,TOTAL 0.9 mg/dL (0.2-1.3); BLOOD UREA NITROGEN 11 mg/dL (7-20); CALCIUM 10.2 mg/dL (8.4-10.2); CARBON DIOXIDE 29 mmol/L (22-30); CHLORIDE 98 mmol/L (98-107); GLUCOSE 103 mg/dL (75-110); POTASSIUM 3.6 mmol/L (3.6-5.0); TOTAL PROTEIN 8.6 g/dL (6.3-8.2)
[2020-05-18 22:37] LABS: ABSOLUTE EOSINOPHILS # (AUTO) 0.1 10^3/uL (0.0-0.6); ABSOLUTE LYMPHOCYTES (AUTO) 2.7 10^3/uL (0.5-4.7); ABSOLUTE NEUT (AUTO) 2.7 10^3/uL (1.7-8.2); EOSINOPHILS % (AUTO) 0.9 % (0-6); HEMATOCRIT 36.1 % (36.0-47.0); HEMOGLOBIN 11.6 g/dL (12.0-15.5); LYMPHOCYTES % (AUTO) 43.2 % (13-45); MEAN CORPUSCULAR HGB CONC 32.1 g/dL (32.0-36.0); MEAN CORPUSCULAR VOLUME 73 fl (80-97); MONOCYTES % (AUTO) 11.3 % (3-13); RED BLOOD COUNT 4.96 10^6/uL (3.72-5.28); RED CELL DISTRIBUTION WIDTH 19.7 % (11.5-14.0); SEGMENTED NEUTROPHILS % (AUTO) 43.2 % (42-78); WHITE BLOOD COUNT 6.3 10^3/uL (4.0-10.5)
[2020-05-18 23:33] VITALS: BP 174/118
--- NOTE | 2020-05-19 07:46 | EKG REPORT ---
SEVERITY:- BORDERLINE ECG - SINUS RHYTHM BORDERLINE PROLONGED QT INTERVAL : Confirmed by: Mauri Cox MD 19-May-2020 07:46:04
== END 2020-05-18 23:35 | disposition home or self-care (01) ==
LOC: ER 16:27
DX: I10 Essential (primary) hypertension (principal); F41.9 Anxiety disorder, unspecified; R07.89 Other chest pain; R06.02 Shortness of breath; R20.0 Anesthesia of skin
CPT/HCPCS: 36415; 70450; 71045; 80053; 84484; 85025; 93005; 93010; 99285